=== PATIENT | female | born 1935 | race Caucasian/White ===

== ENCOUNTER 2023-02-22 10:13 | Inpatient (IN) | payer MEDICARE ==
[2023-02-22] VITALS (13 sets, daily range): BP systolic 114–130; BP diastolic 47–77; PULSE 57–93; TEMP 97.9–98.5
[~2023-02-22] VITALS: Ht 152.4 cm; Wt 93.5 kg
[2023-02-22] MEDS ORDERED: MOBIC 7.5MG7.5 MG PO (11:17)
[2023-02-22] MEDS ORDERED: PRINIVIL20 MG PO (11:17)
[2023-02-22] MEDS ORDERED: OSCAL 500 TAB500 MG PO (11:18)
[2023-02-22] MEDS ORDERED: PROFE180 MG PO (11:19)
[2023-02-22] MEDS ORDERED: ASPIRIN 81M81 MG/TA2 PO (11:19)
[2023-02-22] MEDS ORDERED: VITAMIN C500 MG PO (11:19)
[2023-02-22] MEDS ORDERED: LUTEIN6 MG PO (11:20)
--- NOTE | 2023-02-22 12:16 | NUR ---
PATIENT AMBULATED TO BAY 5 WITH SLOW STEADY GAIT. ALERT AND ORIENTED X4. PATIENT STATED UNDERSTANDING OF PROCEDURE. CONSENTS SIGNED. ASSESSMENT COMPLETED. 20G IV STARTED IN RIGHT FOREARM BY SADA FROM IV SERVICES. LR INFUSING WITHOUT DIFFICULTIES. WARM BLANKET PROVIDED. NO FURTHER NEEDS NOTED AT THIS TIME. RESTING IN COT. CALL LIGHT IN REACH. DAUGHTER AT BEDSIDE.
--- NOTE | 2023-02-22 17:45 | NUR ---
pt admitted to room from pacu, daughter at bedside. pt a&ox4. vss. pt still has no feeling in leg from block. scds and teds to ble. right leg dressing is cdi. hemovac in place with minimal bloody output. pt on 2l nasal cannula. fluids infusing into right forearm. med red and admission assessment complete. pt denies needs at this time. call light in reach.
--- NOTE | 2023-02-22 19:25 | NUR ---
REPORT RECIEVED FROM PATRIZIA SCHAFER. PT RESTING IN BED EATING DINNER WITH FAMILY AT BEDSIDE. PT DENIES PAIN. CALL LIGHT IN PLACE. ALL NEEDS MET AT THIS TIME.
[2023-02-22] MEDS ORDERED: FERROUSAL325 MG PO (20:58)
--- NOTE | 2023-02-22 23:16 | NUR ---
SHIFT ASSESSMENT COMPLETE, SEE DOCUMENTATION. PT RESTING IN BED. PT REPORTS SHE CAN FEEL HER TOES BUT HER LEG IS STILL NUMB. PT ABLE TO MOVE TOES ON BOTH FEET. PT DENIES PAIN. VSS. PT FINISHED POST OP VITAL SIGNS. PT HAS SLIGHT DESAT TO 86% ON RA. PT PUT ON 1LNC WHICH INCREASE O2 SAT TO 95%. PT DENIES SOB OR CHEST PAIN. CALL LIGHT IN PLACE. ALL NEEDS MET AT THIS TIME.
[2023-02-23] VITALS (12 sets, daily range): BP systolic 96–145; BP diastolic 54–80; PULSE 76–93; TEMP 97.9–99.6
--- NOTE | 2023-02-23 01:26 | NUR ---
PT AWAKE AND REQUESTING SOMETHING FOR PAIN. SCHEDULED TYLENOL ADMINISTERED. PT LEG REPOSITIONED AND PT NOW COMFORTABLE. CALL LIGHT IN REACH. ALL NEEDS MET AT THIS TIME.
[2023-02-23 05:22] LABS: HEMATOCRIT 38.6 % (37.0-47.0); HEMOGLOBIN 12.7 g/dl (12.5-16.0)
[2023-02-23 05:41] LABS: CALCIUM 8.6 mg/dL (8.4-10.2); CREATININE, serum 1.51 mg/dL (0.57-1.11); POTASSIUM 5.2 mmol/L (3.5-4.5)
--- NOTE | 2023-02-23 06:30 | NUR ---
PT AMBULATED TO BATHROOM UTILIZING GAIT BELT AND WALKER. PT HAD UNSTEADY GAIT BUT IMPROVED WITH MORE STEPS. PT DENIES PAIN. CALL LIGHT IN PLACE. ALL NEEDS MET AT THIS TIME.
--- NOTE | 2023-02-23 10:39 | NUR ---
PATIENT ALERT AND ORIENTED X4. VSS. PATIENT HERE FOR RIGHT TOTAL KNEE. HEMOVAC TO COMPRESSION WITH DARK RED OUTPUT. PATIENT REPORTS PAIN 2/10, REQUESTS TYLENOL FOR PAIN. PATTIENT RESTING IN BED, FINISHED BREAKFAST. CALL LIGHT IN REACH. NO FURTHER NEEDS AT THIS TIME.
--- NOTE | 2023-02-23 13:40 | NUR ---
Initial visit: Health Safety Specialist stopped by room on rounds. Pt was resting and content. Pt has no needs right now. Health Safety Specialist will follow up as needed.
--- NOTE | 2023-02-23 16:25 | NUR ---
insole department worker met with patient and daughter, Bridget (P# [phone]) to discuss discharge planning. Patient confirmed she lives in [place]. Patient's primary care physician is Dr. Abbasi and preferred pharmacy is [facility] [place]. Patient is able to afford medications without difficulty. Patient does not have a DPOA and does not wish to assign one at this time. Patient has a cane, FWW and 4 wheel walker with seat at home. Patient was independent with ADLS prior to hospitalization. Patient would like to go to a swing bed or SNF if eligible through insurance but would be open to outpatient services. DEANNA confirmed with weaving loom operator patient does not currently qualify for inpatient. DEANNA notified patient and daughter. Patient would like to receive outpatient services through [facility]. DEANNA notified PA and she will assist doctor with discharge orders when patient is medically stable. DEANNA faxed referral to [facility]. Discharge Plan: Home with Outpatient PT
--- NOTE | 2023-02-23 19:26 | NUR ---
REPORT RECIEVED FROM JOSE SCHAFER. PT RESTING IN BED WITH FAMILY AT BEDSIDE. PT DENIES PAIN AT THIS TIME AND STATES THE PAIN MEDICATION HAS WORKED FOR HER. CALL LIGHT IN PLACE. ALL NEEDS MET AT THIS TIME.
--- NOTE | 2023-02-23 20:41 | NUR ---
SHIFT ASSESSMENT COMPLETE, SEE DOCUMENTATION. PT DENIES PAIN AT THIS TIME. PT AMBULATED TO BATHROOM WITH STAFF ASSISTANCE, GAIT STEADY. PT NOW IN BED. HS MEDS TOLERATED WELL. CALL LIGHT IN PLACE. BED ALARM ON. ALL NEEDS MET AT THIS TIME.
[2023-02-24] VITALS (13 sets, daily range): BP systolic 97–153; BP diastolic 44–84; PULSE 93–117; TEMP 97.8–99
[2023-02-24 06:14] LABS: HEMATOCRIT 34.1 % (37.0-47.0)
[2023-02-24 06:33] LABS: CALCIUM 8.2 mg/dL (8.4-10.2); CREATININE, serum 1.21 mg/dL (0.57-1.11); MAGNESIUM 2.1 mg/dL (1.6-2.6)
--- NOTE | 2023-02-24 08:09 | NUR ---
PATIENT ALERT AND ORIENTED X3 WITH INTERMITTENT CONFUSION. SEEMS TO BE CONFUSED WITH NEW ENVIRONMENT OR WHEN JUST WAKING UP. IV TO RIGHT FA WITH FLUIDS RUNNING AT 100ML/HOUR. DRESSING TO RIGHT KNEE, CDI. PATIENT REPORTS PAIN 3/10, DENIES NEED FOR PAIN MEDICATION. PATIENT IN BED WAITING ON BREAKFAST, NO FURTHER NEEDS AT THIS TIME. CALL LIGHT IN REACH.
[2023-02-24] MEDS ORDERED: MOBIC 7.5MG7.5 MG PO (09:18)
--- NOTE | 2023-02-24 10:43 | NUR ---
Initial visit; Patient thanked Color Grinder for looking in on her and offering God's blessings and to keep her in her prayers.
[2023-02-24] MEDS ORDERED: ELIQUIS 2.5 PO (11:44)
[2023-02-24] MEDS ORDERED: PERCOCET 325 MG1 TA2 PO (11:46)
[2023-02-24] MEDS ORDERED: CEPHALEXIN500 M1 PO (11:46)
--- NOTE | 2023-02-24 14:43 | NUR ---
Screw Machine Operator Single Spindle met with patient to discuss discharge plan. DEANNA discussed Home Health services and it's benefits as patient has expressed concern about managing stairs in and out of the home. Patient is interested in this and will discuss it with her daughter. DEANNA provided Medicare.gov list of agencies. DEANNA followed up later in the morning with daughter, Pily at bedside. Pily stated that they have decided on outpatient therapy at [facility]. DEANNA asked patient is she is agreeable to this and she stated yes. DEANNA contacted [facility] and confirmed they have referral and have an appointment set for Wednesday, which DEANNA provided to the unitizer. DEANNA spoke with bedside RN who advised discharge will likely be tomorrow per Hospitalist.
--- NOTE | 2023-02-24 19:13 | NUR ---
REPORT RECIEVED FROM JOSE SCHAFER. PT SITTING IN RECLINER WITH FRIEND AT BEDSIDE. PT DENIES PAIN AT THIS TIME. CHAIR ALARM ON. CALL LIGHT IN REACH. ALL NEEDS MET AT THIS TIME.
--- NOTE | 2023-02-24 22:03 | NUR ---
SHIFT ASSESSMENT COMPLETE, SEE DOCUMENTATION. PT DENIES PAIN AT THIS TIME. PT REQUESTED NOT TO BE WOKEN FOR 0021 TYLENOL IF SHE IS SLEEPING PEACEFULLY. PT AMBULATED TO BATHROOM UTILIZING GAIT BELT AND WALKER, STEADY GAIT. PT NOW RESTING IN BED, EQUAL AND UNLABORED BREATHS NOTED. CALL LIGHT IN PLACE. BED ALARM ON. ALL NEEDS MET AT THIS TIME.
[2023-02-25] VITALS (8 sets, daily range): BP systolic 127–157; BP diastolic 48–77; PULSE 87–117; TEMP 97.4–98.5
--- NOTE | 2023-02-25 04:31 | NUR ---
PT NOTED TO HAVE INCREASED HR WITH ACTIVITY. PT HR WAS 117 AFTER TOILETING. 15 MINUTES AFTER PT GOT BACK IN BED, HR IS 94. PT ASYMPTOMATIC AND DENIES PAIN OR SOB. CALL LIGHT IN PLACE. ALL NEEDS MET AT THIS TIME.
[2023-02-25 05:57] LABS: CALCIUM 7.9 mg/dL (8.4-10.2); CREATININE, serum 0.97 mg/dL (0.57-1.11); POTASSIUM 4.9 mmol/L (3.5-4.5)
--- NOTE | 2023-02-25 12:18 | NUR ---
PATIENT ALERT AND ORIENTED X4. VSS. PATIENT HERE FOR RIGHT TOTAL KNEE. DRESSING WITH DANITZA WRAP APPLIED. RLE ELEVATED. IV TO RIGHT HAND, INT. PATIENT REPORTS PAIN 2/10, DENIES NEED FOR PAIN MEDICATION. PATIENT RESTING IN CHAIR AFTER THERAPY. NO FURTHER NEEDS. CALL LIGHT IN REACH.
--- NOTE | 2023-02-25 15:05 | NUR ---
DISCHARGE INSTRUCTIONS PROVIDED. PATIENT EDUCATION GIVEN. IV DC'D. MEDICATIONS REVIEWED. FOLLOW UP APPOINTMENTS DISCUSSED. PATIENT AND FAMILY DENY AND QUESTIONS OR CONCERNS.
--- NOTE | 2023-02-25 15:48 | NUR ---
Maintenance Shop Manager faxed discharge orders to [facility] for outpatient PT. DEANNA Lakhani called to confirm orders were received.
--- NOTE | 2023-02-25 16:09 | NUR ---
PATIENT ESCORTED OUT WITH BELONGINGS AND FAMILY VIA WHEELCHAIR
== END 2023-02-25 15:40 | disposition home health service (06) | DRG 470 ==
LOC: SDCO 10:13 → SURG 17:45 → SDCO 02-23 15:59 → SURG 02-23 16:00
PROVIDERS: ADMIT Orthopaedic Surgery
PROC: 0SRC0J9 Replacement of Right Knee Joint with Synthetic Substitute, Cemented, Open Approach (ICD-10-PCS; principal; 2023-02-23)
DX: M17.11 Unilateral primary osteoarthritis, right knee (principal); N17.9 Acute kidney failure, unspecified; I10 Essential (primary) hypertension; Z79.82 Long term (current) use of aspirin
CPT/HCPCS: OP; A9284; C1713; C1776; J0690; J1100; J1580; J1885; J2270; J2371; J2704; J2795; J3010; J7030; J7120